=== PATIENT | female | born 1965 | race Caucasian/White ===

== ENCOUNTER 2024-08-20 09:01 | Outpatient (CLI) | payer SELFPAY | END 2024-08-20 23:59 | disposition home or self-care (01) | LOC: RAD 09:01 | PROVIDERS: ATTEND Naturopath | DX: Z13.6 Encounter for screening for cardiovascular disorders (principal); E78.00 Pure hypercholesterolemia, unspecified; E78.89 Other lipoprotein metabolism disorders | CPT/HCPCS: 75571 ==